=== PATIENT | female | born 1990 | race Asian ===

== ENCOUNTER 2018-10-12 11:14 | Inpatient (IN) | payer BC ==
[2018-10-12] VITALS (14 sets, daily range): BP systolic 113–145; BP diastolic 81–111
[~2018-10-12] VITALS: Ht 167.6 cm; Wt 92.1 kg
[2018-10-12] MEDS ORDERED: ONDANSETRON HCL INJ 2MG/ML 2ML 2 MG/ML VIAL IV STA (11:18)
[2018-10-12] MEDS ORDERED: SODIUM CHLORIDE 0.9% 1000ML 1,000 ML IV STA ×2 (11:18)
[2018-10-12] MEDS ORDERED: SODIUM CHLORIDE 0.9% 1000ML 2,000 ML ONE (11:54)
[2018-10-12 12:03] LABS: BASOPHILS # (AUTO) 0.1 (0.0-0.1); BASOPHILS % 0.5 % (0.0-1.0); HEMATOCRIT 46.5 % (34.2-44.1); HEMOGLOBIN 15.3 g/dL (12.0-16.0); LYMPHOCYTES # (AUTO) 1.2 (1.0-3.2); LYMPHOCYTES % 8.4 % (18.0-39.1); MEAN CORPUSCULAR HEMOGLOBIN 30.2 pg (28-32); MEAN CORPUSCULAR HGB CONC 32.9 g/dL (31-35); MEAN CORPUSCULAR VOLUME 91.7 fL (81-99); MONOCYTES # (AUTO) 1.1 (0.2-0.8); MONOCYTES % 7.3 % (4.4-11.3); PLATELET COUNT 352 x10e3/uL (140-360); RED BLOOD COUNT 5.07 x10e6/uL (3.6-5.1); RED CELL DISTRIBUTION WIDTH 13.7 % (11.7-14.4)
[2018-10-12 12:14] LABS: ALBUMIN 5.2 g/dL (3.5-5.0); ALBUMIN/GLOBULIN RATIO 0.9 (0.8-2.0); ANION GAP 33.4 mmol/L (8-16); CALCIUM 10.7 mg/dL (8.4-10.2); CREATININE, SERUM 2.4 mg/dL (0.57-1.11); POTASSIUM 5.4 mmol/L (3.5-5.1)
[2018-10-12 12:26] LABS: ABG HCO3 4 mmol/L (23-28); ABG PCO2 15 mmHg (41-51); ABG PH 7.08 (7.31-7.41); ABG PO2 121 mmHg (80-105)
[2018-10-12 12:28] LABS: BILIRUBIN,URINE NEGATIVE (NEGATIVE); CLARITY,URINE CLOUDY (CLEAR); COLOR,URINE OTHER (YELLOW); LEUKOCYTE ESTERASE ,URINE TRACE (NEGATIVE); NITRITE,URINE NEGATIVE (NEGATIVE); PROTEIN,URINE DIPSTICK 1+ (NEGATIVE); URINE UROBILINOGEN 0.2 mg/dL (0.2 - 1)
[2018-10-12 12:45] LABS: KETONES,URINE 2+ (NEGATIVE)
[2018-10-12 12:46] LABS: BACTERIA,URINE RARE /HPF; EPITHELIAL CELLS,URINE FEW /LPF; YEAST,URINE FEW
--- NOTE | 2018-10-12 12:50 | NUR ---
Pharmacy notified of ordered insulin drip.
[2018-10-12] MEDS: INSULIN REGULAR, HUMAN 3ML VL 100 UNIT in SODIUM CHLORIDE 0.9% 100 ML 99 ML IV SCH ×4 (13:07→15:30)
--- NOTE | 2018-10-12 13:07 | NUR ---
INSULIN DRIP STARTED AT 12 UNITS/HR AND DOUBLE CHECKED BY GOPAL KEMP.
[2018-10-12] MEDS ORDERED: DEXTROSE 5%/0.45% SOD CHL 1,000 ML IV ONE (13:15)
[2018-10-12] MEDS ORDERED: SODIUM CHLORIDE 0.9% 1000ML 1,000 ML IV SCH ×3 (13:15→16:30)
--- NOTE | 2018-10-12 13:19 | NUR ---
PT/FAMILY UPDATED ON PENDING ADMIT TO ICU FOR DKA.
[2018-10-12 13:39] LABS: PLATELET ESTIMATE ADEQUATE; PLATELET MORPHOLOGY COMMENT NORMAL; RBC MORPHOLOGY COMMENT NORMAL
--- NOTE | 2018-10-12 13:57 | NUR ---
ATTEMPTED TO CALL REPORT
[2018-10-12] MEDS ORDERED: MAGNESIUM SULF 1GRAM/DEXTROSE 100 ML IV PRN ×2 (16:15→20:15)
[2018-10-12] MEDS ORDERED: POTASSIUM CHLORIDE 20MEQ/100ML 100 ML IV PRN (16:15)
[2018-10-12] MEDS ORDERED: INSULIN REGULAR, HUMAN 100 UNIT/1 ML 3ML VIAL SQ PRN (16:15)
[2018-10-12] MEDS ORDERED: INSULIN GLARGINE 100 UNITS/ML VIAL SQ PRN (16:15)
[2018-10-12] MEDS ORDERED: SODIUM CHLORIDE 0.9% 1000ML 1,000 ML IV PRN (16:30)
--- NOTE | 2018-10-12 17:24 | NUR ---
patient admitted to icu from er with dka diagnosis. pt awake, lethargic, slow to respond to commands. continue with insulin and ns gtt's. spoke with Satish LABOR SERVICE REPRESENTATIVE with Dr. Beyer. notified of patient admission. no new orders at this time. Satish SILVESTRE aware of elevated blood glucose.
[2018-10-12 17:46] LABS: ANION GAP 23.3 mmol/L (8-16); CALCIUM 8.6 mg/dL (8.4-10.2); CREATININE, SERUM 1.32 mg/dL (0.57-1.11); MAGNESIUM 2.1 MG/DL (1.3-2.1); POTASSIUM 4.3 mmol/L (3.5-5.1)
[2018-10-12] MEDS ORDERED: TRAMADOL HCL 50 MG TAB PO PRN (20:00)
[2018-10-12] MEDS ORDERED: HYDROCODONE/APAP 10MG-325MG TAB PO PRN (20:00)
[2018-10-12] MEDS ORDERED: MORPHINE SULFATE INJ 4 MG/ML INJ 1ML IV PRN ×2 (20:00→20:15)
[2018-10-12] MEDS: SODIUM CHLORIDE 0.9% 1000ML 1,000 ML IV SCH (20:05)
[2018-10-12] MEDS ORDERED: INSULIN REGULAR, HUMAN 3ML VL 100 UNIT in SODIUM CHLORIDE 0.9% 100 ML IV SCH ×2 (20:15)
[2018-10-12] MEDS ORDERED: POTASSIUM CHLORIDE 20MEQ/100ML 200 ML IV PRN (20:15)
[2018-10-12 20:55] LABS: ANION GAP 19.3 mmol/L (8-16); CREATININE, SERUM 1.12 mg/dL (0.57-1.11); MAGNESIUM 1.7 MG/DL (1.3-2.1); POTASSIUM 3.3 mmol/L (3.5-5.1)
[2018-10-12] MEDS: POTASSIUM CHLORIDE 20MEQ/100ML 100 ML INJ PRN (21:11)
[2018-10-12] MEDS: DEXTROSE 5%/0.45% SOD CHL 1,000 ML IV SCH (22:40)
[2018-10-13] VITALS (23 sets, daily range): BP systolic 101–143; BP diastolic 68–123
[2018-10-13] MEDS: SODIUM CHLORIDE 0.9% 1000ML 1,000 ML IV SCH ×6 (00:05→19:29)
[2018-10-13 01:24] LABS: ANION GAP 15.2 mmol/L (8-16); CALCIUM 8.2 mg/dL (8.4-10.2); CREATININE, SERUM 1.13 mg/dL (0.57-1.11); MAGNESIUM 2.3 MG/DL (1.3-2.1)
[2018-10-13 01:30] LABS: POTASSIUM 4.2 mmol/L (3.5-5.1)
[2018-10-13 04:52] LABS: BASOPHILS % 0.3 % (0.0-1.0); EOSINOPHILS # (AUTO) 0.1 (0.0-0.4); EOSINOPHILS % 0.6 % (0.0-6.0); HEMATOCRIT 38.8 % (34.2-44.1); HEMOGLOBIN 13.4 g/dL (12.0-16.0); LYMPHOCYTES # (AUTO) 1.9 (1.0-3.2); LYMPHOCYTES % 16.1 % (18.0-39.1); MEAN CORPUSCULAR HEMOGLOBIN 29.8 pg (28-32); MEAN CORPUSCULAR HGB CONC 34.5 g/dL (31-35); MONOCYTES # (AUTO) 0.9 (0.2-0.8); MONOCYTES % 7.9 % (4.4-11.3); NEUTROPHILS # (AUTO) 8.6 (2.1-6.9); NEUTROPHILS % 74.8 % (38.7-80.0); PLATELET COUNT 310 x10e3/uL (140-360); RED CELL DISTRIBUTION WIDTH 13.3 % (11.7-14.4)
[2018-10-13 05:00] LABS: MEAN CORPUSCULAR VOLUME 86.2 fL (81-99)
[2018-10-13 05:13] LABS: ANION GAP 15.6 mmol/L (8-16); CALCIUM 8.6 mg/dL (8.4-10.2); CREATININE, SERUM 1.2 mg/dL (0.57-1.11); MAGNESIUM 2.2 MG/DL (1.3-2.1); PHOSPHORUS 0.9 MG/DL (2.3-4.7); POTASSIUM 3.6 mmol/L (3.5-5.1)
[2018-10-13 05:14] LABS: CHOL/HDL RATIO 6.2 (3.0-3.6)
[2018-10-13 05:16] LABS: ALBUMIN 3.8 g/dL (3.5-5.0)
[2018-10-13] MEDS: DEXTROSE 5%/0.45% SOD CHL 1,000 ML IV SCH ×2 (06:45→17:00)
--- NOTE | 2018-10-13 07:15 | NUR ---
Patient received asleep and easily awakened when called by name. Respirations are even and unlabored. Alert and Ox4. Denies any pain at this time. Says that she just feels very tired. Call light at bedside and instructed to call for assistance to bathroom. Brother asleep in recliner at bedside.
[2018-10-13 07:25] LABS: THYROID STIMULATING HORMONE 0.658 uIU/mL (0.350-4.940)
[2018-10-13 08:23] LABS: ANION GAP 14.2 mmol/L (8-16); CALCIUM 9.1 mg/dL (8.4-10.2); CREATININE, SERUM 1.18 mg/dL (0.57-1.11); MAGNESIUM 2.2 MG/DL (1.3-2.1); POTASSIUM 3.2 mmol/L (3.5-5.1)
[2018-10-13] MEDS: POTASSIUM CHLORIDE 20MEQ/100ML 100 ML INJ PRN (08:55)
[2018-10-13] MEDS ORDERED: POTASSIUM CHLORIDE 10MEQ/100ML 200 ML IV ONE (09:15)
[2018-10-13] MEDS ORDERED: MAGNESIUM SULF 1GRAM/DEXTROSE 100 ML IV PRN (10:30)
[2018-10-13] MEDS ORDERED: SODIUM CHLORIDE 0.9% 250ML 250 ML ONE (10:38)
[2018-10-13 13:38] LABS: BLOOD UREA NITROGEN 5 mg/dL (7-26); BUN/CREATININE RATIO 5 (6-25); CALCIUM 8.8 mg/dL (8.4-10.2); CARBON DIOXIDE 13 mmol/L (22-29); CHLORIDE 106 mmol/L (98-107); CREATININE, SERUM 1.01 mg/dL (0.57-1.11); EST GLOMERULAR FILTRATION RATE > 60 ML/MIN (60-); GLUCOSE 124 mg/dL (74-118); MAGNESIUM 2.2 MG/DL (1.3-2.1); SODIUM 133 mmol/L (136-145)
--- NOTE | 2018-10-13 14:02 | NUR ---
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 BROTHER WORKS IN OUTPATIENT BUILDING.
[2018-10-13 17:50] LABS: ANION GAP 16.1 mmol/L (8-16); BLOOD UREA NITROGEN < 5 mg/dL (7-26); CALCIUM 8.7 mg/dL (8.4-10.2); CARBON DIOXIDE 14 mmol/L (22-29); CHLORIDE 107 mmol/L (98-107); CREATININE, SERUM 0.93 mg/dL (0.57-1.11); EST GLOMERULAR FILTRATION RATE > 60 ML/MIN (60-); GLUCOSE 125 mg/dL (74-118); MAGNESIUM 2.2 MG/DL (1.3-2.1); POTASSIUM 3.1 mmol/L (3.5-5.1); SODIUM 134 mmol/L (136-145)
[2018-10-13 18:04] LABS: BUN/CREATININE RATIO 5 (6-25)
[2018-10-13] MEDS ORDERED: POTASSIUM CHLORIDE 20 MEQ TAB CR PO ONE (19:30)
[2018-10-13 22:31] LABS: ANION GAP 16.6 mmol/L (8-16); BLOOD UREA NITROGEN < 5 mg/dL (7-26); CALCIUM 8.5 mg/dL (8.4-10.2); CARBON DIOXIDE 13 mmol/L (22-29); CHLORIDE 106 mmol/L (98-107); CREATININE, SERUM 0.87 mg/dL (0.57-1.11); EST GLOMERULAR FILTRATION RATE > 60 ML/MIN (60-); GLUCOSE 154 mg/dL (74-118); MAGNESIUM 2.7 MG/DL (1.3-2.1); POTASSIUM 3.6 mmol/L (3.5-5.1); SODIUM 132 mmol/L (136-145)
[2018-10-13 22:43] LABS: BUN/CREATININE RATIO 6 (6-25)
[2018-10-14] VITALS (19 sets, daily range): BP systolic 113–156; BP diastolic 59–99
[2018-10-14] MEDS: SODIUM CHLORIDE 0.9% 1000ML 1,000 ML IV SCH ×3 (00:05→08:00)
[2018-10-14 02:00] LABS: ANION GAP 13.8 mmol/L (8-16); BLOOD UREA NITROGEN < 5 mg/dL (7-26); CALCIUM 8.4 mg/dL (8.4-10.2); CARBON DIOXIDE 16 mmol/L (22-29); CHLORIDE 108 mmol/L (98-107); EST GLOMERULAR FILTRATION RATE > 60 ML/MIN (60-); GLUCOSE 136 mg/dL (74-118); MAGNESIUM 2.1 MG/DL (1.3-2.1); SODIUM 135 mmol/L (136-145)
[2018-10-14 02:04] LABS: BUN/CREATININE RATIO 6 (6-25)
[2018-10-14 02:06] LABS: POTASSIUM 2.8 mmol/L (3.5-5.1)
[2018-10-14] MEDS: POTASSIUM CHLORIDE 20MEQ/100ML 200 ML IV PRN (02:22)
--- NOTE | 2018-10-14 03:26 | Diagnostic Imaging Report ---
EXAMINATION: CHEST SINGLE (PORTABLE) INDICATION: ^PICC LINE PLACEMENT ^[id number] ^0300 COMPARISON: None FINDINGS: AP view TUBES and LINES: Right PICC visualized with tip overlying mid to inferior SVC. LUNGS: Low lung volumes. Also Limited by body habitus. Central vascular congestion. PLEURA: No significant pleural effusion or pneumothorax. HEART AND MEDIASTINUM: The cardiomediastinal silhouette is unremarkable. BONES AND SOFT TISSUES: No acute osseous lesion. Soft tissues are unremarkable. UPPER ABDOMEN: No free air under the diaphragm. IMPRESSION: Right PICC in place with tip projecting over mid to inferior SVC. No visible pneumothorax. Signed by: Dr. Grzegorz Ann MD on 10/14/2018 3:23 AM
[2018-10-14] MEDS: DEXTROSE 5%/0.45% SOD CHL 1,000 ML IV SCH (06:07)
[2018-10-14 06:35] LABS: BLOOD UREA NITROGEN < 5 mg/dL (7-26); CALCIUM 8.3 mg/dL (8.4-10.2); CARBON DIOXIDE 18 mmol/L (22-29); CHLORIDE 109 mmol/L (98-107); CREATININE, SERUM 0.79 mg/dL (0.57-1.11); EST GLOMERULAR FILTRATION RATE > 60 ML/MIN (60-); GLUCOSE 130 mg/dL (74-118); MAGNESIUM 2.1 MG/DL (1.3-2.1); SODIUM 136 mmol/L (136-145)
[2018-10-14 06:39] LABS: BUN/CREATININE RATIO 6 (6-25)
[2018-10-14] MEDS ORDERED: POTASSIUM CHLORIDE 20MEQ/100ML 100 ML ONE (08:03)
[2018-10-14] MEDS: POTASSIUM CHLORIDE 20MEQ/100ML 100 ML INJ PRN ×4 (09:47→15:45)
--- NOTE | 2018-10-14 10:29 | NUR ---
Consult called to Dr Nguyen.
[2018-10-14 10:41] LABS: ANION GAP 11.8 mmol/L (8-16); BLOOD UREA NITROGEN < 5 mg/dL (7-26); CALCIUM 8.3 mg/dL (8.4-10.2); CARBON DIOXIDE 19 mmol/L (22-29); CHLORIDE 109 mmol/L (98-107); CREATININE, SERUM 0.76 mg/dL (0.57-1.11); EST GLOMERULAR FILTRATION RATE > 60 ML/MIN (60-); GLUCOSE 151 mg/dL (74-118); MAGNESIUM 1.9 MG/DL (1.3-2.1); SODIUM 137 mmol/L (136-145)
[2018-10-14 10:45] LABS: BUN/CREATININE RATIO 7 (6-25); POTASSIUM 2.8 mmol/L (3.5-5.1)
[2018-10-14] MEDS: SODIUM CHLORIDE 0.45% 1,000 ML IV SCH ×2 (11:24→23:00)
[2018-10-14] MEDS ORDERED: INSULIN REGULAR, HUMAN 100 UNITS in SODIUM CHLORIDE 0.45% 100 ML SQ PRN ×2 (11:45)
[2018-10-14] MEDS ORDERED: INSULIN LISPRO 100 UNIT/1 ML 3ML VIAL SQ ONE (13:45)
--- NOTE | 2018-10-14 14:25 | NUR ---
Nutrition Education Note RD Recommendation for Physician: -Continue ADA 1800 diet as ordered -RD provided education on diabetic diet; pt will need further education and monitoring once discharged. Plan of Care: RD following, monitoring for tolerance and adequacy, diet education Nutrition reason for involvement: Newly diagnosed DM Primary Diagnose(s): DKA PMH: no H&P indicated Ht: 66in Wt: 204.06lb BMI: 32.9kg/m2 IBW: 130lb RD Assessment: (10/14/2018) Chart reviewed. Labs and meds reviewed. 28yo F, who was admitted for DKA. BG 137 161 on insulin. HbA1c at 12.6%. Visited pt in the room. Pt eating well without any GI complains. RD provided education on carbohydrate counting and portion sizes. All questions have been answered. Will continue to monitor and follow. Current Diet: ADA 1800 Malnutrition Evaluation (10/14/2018) The patient does not meet criteria for a specified degree of malnutrition at this time. Will re-evaluate at follow-up as appropriate. Diet Education Needs Assessment: Diet education indicated, pt was agreeable with plan. Learner(s): pt and sister Time spent: 25 minutes Barriers: No barriers identified. Cultural/Language Modifications: No cultural/language modifications noted. Pt and sister speak Maltese. Readiness: Acceptance Method: Handouts, explanation Topics: Carbohydrate exchanges, Carbohydrate counting handouts, Reading the nutrition label, meal planning tips, exercise tips, servings/portion sizes, S/S of hypo & hyperglycemia Understanding/Compliance: Expect fair understanding/compliance from pt. Will benefit from reinforcement. All questions have been answered. Nutrition Care Level: low Signed: Jen Sood, , RD, LD
[2018-10-14 15:19] LABS: ANION GAP 15.2 mmol/L (8-16); BLOOD UREA NITROGEN < 5 mg/dL (7-26); CALCIUM 8.4 mg/dL (8.4-10.2); CARBON DIOXIDE 17 mmol/L (22-29); CHLORIDE 106 mmol/L (98-107); CREATININE, SERUM 0.77 mg/dL (0.57-1.11); EST GLOMERULAR FILTRATION RATE > 60 ML/MIN (60-); GLUCOSE 278 mg/dL (74-118); POTASSIUM 3.2 mmol/L (3.5-5.1); SODIUM 135 mmol/L (136-145)
[2018-10-14 15:24] LABS: BUN/CREATININE RATIO 6 (6-25)
[2018-10-14 15:28] LABS: FREE T4 (FREE THYROXINE) 1.16 ng/dL (0.9-1.8); THYROID STIMULATING HORMONE 1.65 uIU/mL (0.350-4.940)
[2018-10-14] MEDS: INSULIN LISPRO 100 UNIT/1 ML 3ML VIAL SQ SCH ×3 (16:49→21:21)
[2018-10-14] MEDS: INSULIN GLARGINE 100 UNITS/ML VIAL SQ SCH (21:22)
--- NOTE | 2018-10-14 21:33 | Consultation ---
DATE OF CONSULTATION: 10/14/2018 Endocrine Consultation Thank you very much for referring this patient. HISTORY OF PRESENT ILLNESS: This is a 28-year-old female, who was referred to me for evaluation of new onset diabetes mellitus and diabetic ketoacidosis. The patient has a strong family history of diabetes mellitus. Before she came to the hospital, she was having polyuria, polydipsia, dryness of mouth and she came to the hospital with history of nausea and vomiting. Her blood sugar at the time of admission was 1223 and anion gap was elevated at 33.4. Her sodium was 114. Since the patient has been in the hospital, she has been on insulin drip and IV fluids and symptomatically, she is doing much better. PHYSICAL EXAMINATION: GENERAL: Today, the patient is alert, awake, and little bit apprehensive. She is moderately overweight. VITAL SIGNS: Her heart rate is around 100, blood pressure is 120/80 mmHg. HEENT: Essentially unremarkable. Thyroid is palpable. Clinically, she is near euthyroid. CHEST: Bilateral vesicular breathing. No rales. CARDIAC: First and second heart sounds. There is no third or fourth heart sound with the systolic grade 2/6. EXTREMITIES: The patient has evidence of diabetic sensory neuropathy in both lower extremities. CLINICAL IMPRESSION: Diabetes mellitus, probably type 1 diabetic ketoacidosis and dehydration. PLAN: At this time is to taper off the insulin drip and start from the subcu insulin. Monitor her blood sugars closely. The patient needs extensive diabetic and dietary education. Thanks for referring this patient. I will be following this patient with you. MD DUTCH Reis/MARIPOSAL /[id number]
--- NOTE | 2018-10-14 21:33 | NUR ---
RECEIVED PATIENT FROM ICU AT THIS TIME. PATIENT IS A&OX4. NO PAIN REPORTED. LUNG SOUNDS CLEAR. BOWEL SOUNDS ACTIVE. SKIN INTACT. R UPPER ARM PICC LINE ASYMPTOMATIC, INTACT, AND PATENT. R AC 20 G ASYMPTOMATIC, INTACT, AND PATENT. 1/2 NS @ 75ML/HR. NO S&S OF DISTRESS NOTED. BED LOCKED IN LOWEST POSITION, SIDE RAILS UPX2, CALL LIGHT IN REACH.
[2018-10-14] MEDS ORDERED: FLUCONAZOLE 100 MG TAB PO ONE (21:45)
[2018-10-15] VITALS (8 sets, daily range): BP systolic 113–124; BP diastolic 62–88
[2018-10-15 03:09] LABS: BASOPHILS % 0.2 % (0.0-1.0); EOSINOPHILS # (AUTO) 0.1 (0.0-0.4); EOSINOPHILS % 1.4 % (0.0-6.0); HEMATOCRIT 30.6 % (34.2-44.1); HEMOGLOBIN 11.1 g/dL (12.0-16.0); LYMPHOCYTES # (AUTO) 2.1 (1.0-3.2); LYMPHOCYTES % 35.5 % (18.0-39.1); MEAN CORPUSCULAR HEMOGLOBIN 30.2 pg (28-32); MEAN CORPUSCULAR HGB CONC 36.3 g/dL (31-35); MEAN CORPUSCULAR VOLUME 83.4 fL (81-99); MONOCYTES # (AUTO) 0.6 (0.2-0.8); MONOCYTES % 9.3 % (4.4-11.3); NEUTROPHILS # (AUTO) 3.2 (2.1-6.9); NEUTROPHILS % 53.4 % (38.7-80.0); PLATELET COUNT 200 x10e3/uL (140-360); RED BLOOD COUNT 3.67 x10e6/uL (3.6-5.1); RED CELL DISTRIBUTION WIDTH 13.8 % (11.7-14.4)
[2018-10-15 03:25] LABS: ANION GAP 14.9 mmol/L (8-16); BLOOD UREA NITROGEN < 5 mg/dL (7-26); CALCIUM 8.1 mg/dL (8.4-10.2); CARBON DIOXIDE 20 mmol/L (22-29); CHLORIDE 105 mmol/L (98-107); CREATININE, SERUM 0.69 mg/dL (0.57-1.11); EST GLOMERULAR FILTRATION RATE > 60 ML/MIN (60-); GLUCOSE 291 mg/dL (74-118); SODIUM 137 mmol/L (136-145)
[2018-10-15 03:36] LABS: MAGNESIUM 1.8 MG/DL (1.3-2.1); PHOSPHORUS 1.3 MG/DL (2.3-4.7)
[2018-10-15 03:39] LABS: BUN/CREATININE RATIO 7 (6-25)
[2018-10-15 03:40] LABS: POTASSIUM 2.9 mmol/L (3.5-5.1)
[2018-10-15] MEDS: POTASSIUM CHLORIDE 20MEQ/100ML 200 ML IV PRN (04:26)
--- NOTE | 2018-10-15 04:26 | NUR ---
PATIENT'S POTASSIUM LEVEL IS 2.9. STARTED INFUSING POTASSIUM CHLORIDE ORDERED ON EMAR. BMP TO BE COLLECTED 1 HOUR POST INFUSION COMPLETION TIME, PROJECTED TO BE 0730.
--- NOTE | 2018-10-15 07:01 | NUR ---
PT AWAKE AND AMBULATING TO RESTROOM AT THIS TIME NO DISTRESS NOTED, PT HAS FAMILY MEMBERS AT BEDSIDE.
[2018-10-15] MEDS: INSULIN LISPRO 100 UNIT/1 ML 3ML VIAL SQ SCH ×7 (07:30→21:43)
--- NOTE | 2018-10-15 07:30 | NUR ---
BLOOD DRAWN ON PT.VIA PICC LINE, PT TOLERATED WELL.
--- NOTE | 2018-10-15 07:49 | NUR ---
ZUNILDA VISITED PT AT THIS TIME.
[2018-10-15 08:11] LABS: ANION GAP 15.1 mmol/L (8-16); BLOOD UREA NITROGEN < 5 mg/dL (7-26); BUN/CREATININE RATIO 7 (6-25); CALCIUM 7.8 mg/dL (8.4-10.2); CARBON DIOXIDE 19 mmol/L (22-29); CHLORIDE 103 mmol/L (98-107); CREATININE, SERUM 0.68 mg/dL (0.57-1.11); EST GLOMERULAR FILTRATION RATE > 60 ML/MIN (60-); GLUCOSE 294 mg/dL (74-118); POTASSIUM 3.1 mmol/L (3.5-5.1); SODIUM 134 mmol/L (136-145)
[2018-10-15] MEDS: SODIUM CHLORIDE 0.45% 1,000 ML IV SCH (14:42)
[2018-10-15] MEDS: POTASSIUM CHLORIDE 20MEQ/100ML 100 ML INJ PRN (18:59)
--- NOTE | 2018-10-15 19:00 | NUR ---
RECEIVED PATIENT IN BEDSIDE REPORT. NO PAIN REPORTED. NO S&S OF DISTRESS NOTED. BED LOCKED IN LOWEST POSITION, SIDE RAILS UPX2, CALL LIGHT IN REACH.
--- NOTE | 2018-10-15 19:10 | NUR ---
RECEIVED IN REPORT THAT PATIENT'S POTASSIUM IS 3.1, FIRST BAG OF POTASSIUM CHLORIDE, 20MEQ IN 100 ML SPIKED AND HUNG BY DAY SHIFT. SECOND BAG OF POTASSIUM CHLORIDE, 20MEQ IN 100ML TO BE GIVEN ON THIS SHIFT.
--- NOTE | 2018-10-15 19:37 | NUR ---
report given to oncoming nurse for continued care.
--- NOTE | 2018-10-15 21:30 | NUR ---
SECOND BAG OF POTASSIUM CHLORIDE 20 MEQ IN 100ML GIVEN AT THIS TIME. FIRST BAG INFUSED SLOWLY AND JUST FINISHED.
[2018-10-15] MEDS: INSULIN GLARGINE 100 UNITS/ML VIAL SQ SCH (21:43)
--- NOTE | 2018-10-15 21:45 | NUR ---
EDUCATED PATIENT ON INSULIN ADMINISTRATION. PATIENT CORRECTLY DEMONSTRATED DRAWING INSULIN INTO NEEDLE AND ADMINISTERING INJECTION TO SELF. NO QUESTIONS REPORTED. EDUCATED PATIENT ON LONG ACTING VS SHORT ACTING INSULIN.
[2018-10-16] VITALS (8 sets, daily range): BP systolic 114–126; BP diastolic 68–78
[2018-10-16 03:21] LABS: BASOPHILS % 0.3 % (0.0-1.0); EOSINOPHILS # (AUTO) 0.2 (0.0-0.4); EOSINOPHILS % 2.3 % (0.0-6.0); HEMATOCRIT 31.1 % (34.2-44.1); HEMOGLOBIN 11.2 g/dL (12.0-16.0); LYMPHOCYTES # (AUTO) 2.6 (1.0-3.2); MEAN CORPUSCULAR HEMOGLOBIN 30.1 pg (28-32); MEAN CORPUSCULAR VOLUME 83.6 fL (81-99); MONOCYTES # (AUTO) 0.6 (0.2-0.8); MONOCYTES % 8.4 % (4.4-11.3); NEUTROPHILS # (AUTO) 3.2 (2.1-6.9); NEUTROPHILS % 48.7 % (38.7-80.0); PLATELET COUNT 254 x10e3/uL (140-360); RED BLOOD COUNT 3.72 x10e6/uL (3.6-5.1); RED CELL DISTRIBUTION WIDTH 14.2 % (11.7-14.4)
[2018-10-16 03:41] LABS: BLOOD UREA NITROGEN 5 mg/dL (7-26); BUN/CREATININE RATIO 7 (6-25); CALCIUM 8.3 mg/dL (8.4-10.2); CARBON DIOXIDE 20 mmol/L (22-29); CHLORIDE 104 mmol/L (98-107); CREATININE, SERUM 0.67 mg/dL (0.57-1.11); EST GLOMERULAR FILTRATION RATE > 60 ML/MIN (60-); GLUCOSE 268 mg/dL (74-118); MAGNESIUM 1.9 MG/DL (1.3-2.1); SODIUM 137 mmol/L (136-145)
--- NOTE | 2018-10-16 05:25 | NUR ---
CALL PLACED TO NIRMALA EUGENE CONCERNING LOW POTASSIUM LEVEL. LEFT MESSAGE. WAITING FOR CALL BACK.
--- NOTE | 2018-10-16 05:29 | NUR ---
CALL PLACED TO MD GOULD, RECEIVED ORDER TO GIVE 40 MEQ IV IN 200ML ON PRN ORDERS.
[2018-10-16] MEDS: POTASSIUM CHLORIDE 20MEQ/100ML 200 ML IV PRN ×2 (05:38→22:00)
[2018-10-16] MEDS ORDERED: ONDANSETRON HCL INJ 2MG/ML 2ML 2 MG/ML VIAL IV PRN (07:15)
[2018-10-16] MEDS ORDERED: HYDRALAZINE HCL 20 MG/ML VIAL IV PRN (07:15)
[2018-10-16] MEDS ORDERED: ACETAMINOPHEN 325 MG TAB PO PRN (07:15)
[2018-10-16] MEDS: INSULIN LISPRO 100 UNIT/1 ML 3ML VIAL SQ SCH ×7 (07:30→22:10)
--- NOTE | 2018-10-16 07:30 | NUR ---
Viola, here to see pt.
[2018-10-16] MEDS: OYST-CAL-D 500MG TABLET PO SCH ×2 (08:07→18:06)
[2018-10-16] MEDS: SODIUM CHLORIDE 0.45% 1,000 ML IV SCH (10:30)
--- NOTE | 2018-10-16 12:30 | NUR ---
pt administered her insulin.
--- NOTE | 2018-10-16 18:54 | NUR ---
report given to oncoming nurse, pt stable.
--- NOTE | 2018-10-16 19:00 | NUR ---
RECEIVED PATIENT IN BEDSIDE REPORT. PATIENT REPORTS NO PAIN AT THIS TIME. NO S&S OF DISTRESS NOTED. BED LOCKED IN LOWEST POSITION, SIDE RAILS UPX2, CALL LIGHT IN REACH.
[2018-10-16 19:05] LABS: BLOOD UREA NITROGEN 5 mg/dL (7-26); BUN/CREATININE RATIO 8 (6-25); CALCIUM 8.1 mg/dL (8.4-10.2); CARBON DIOXIDE 22 mmol/L (22-29); CHLORIDE 106 mmol/L (98-107); EST GLOMERULAR FILTRATION RATE > 60 ML/MIN (60-); GLUCOSE 262 mg/dL (74-118); SODIUM 138 mmol/L (136-145)
--- NOTE | 2018-10-16 19:13 | NUR ---
report given to oncoming nurse, pt stable.
[2018-10-16] MEDS: INSULIN GLARGINE 100 UNITS/ML VIAL SQ SCH (22:10)
--- NOTE | 2018-10-16 22:10 | NUR ---
PROVIDED PATIENT WITH SLIDING SCALE INFORMATION AND HER BS RESULTS. PATIENT DETERMINED AMOUNT OF INSULIN SHE NEEDED AND ADMINISTERED. PATIENT FOLLOWED PROPER PROCEDURE WITH NO PROMPTING.
[2018-10-17] VITALS: BP 116/75
[2018-10-17] MEDS: SODIUM CHLORIDE 0.45% 1,000 ML IV SCH ×3 (03:35→18:19)
[2018-10-17 03:50] LABS: BASOPHILS % 0.5 % (0.0-1.0); EOSINOPHILS # (AUTO) 0.3 (0.0-0.4); EOSINOPHILS % 4.5 % (0.0-6.0); HEMOGLOBIN 11.3 g/dL (12.0-16.0); LYMPHOCYTES # (AUTO) 3.1 (1.0-3.2); LYMPHOCYTES % 48.3 % (18.0-39.1); MEAN CORPUSCULAR HEMOGLOBIN 30.2 pg (28-32); MEAN CORPUSCULAR HGB CONC 35.3 g/dL (31-35); MEAN CORPUSCULAR VOLUME 85.6 fL (81-99); MONOCYTES # (AUTO) 0.6 (0.2-0.8); NEUTROPHILS # (AUTO) 2.4 (2.1-6.9); NEUTROPHILS % 37.4 % (38.7-80.0); PLATELET COUNT 311 x10e3/uL (140-360); RED BLOOD COUNT 3.74 x10e6/uL (3.6-5.1); RED CELL DISTRIBUTION WIDTH 14.4 % (11.7-14.4)
[2018-10-17 03:59] LABS: ANION GAP 12.4 mmol/L (8-16); BLOOD UREA NITROGEN < 5 mg/dL (7-26); BUN/CREATININE RATIO 8 (6-25); CALCIUM 8.6 mg/dL (8.4-10.2); CARBON DIOXIDE 24 mmol/L (22-29); CHLORIDE 105 mmol/L (98-107); CREATININE, SERUM 0.62 mg/dL (0.57-1.11); EST GLOMERULAR FILTRATION RATE > 60 ML/MIN (60-); GLUCOSE 227 mg/dL (74-118); MAGNESIUM 1.8 MG/DL (1.3-2.1); POTASSIUM 3.4 mmol/L (3.5-5.1); SODIUM 138 mmol/L (136-145)
--- NOTE | 2018-10-17 07:30 | NUR ---
RECEIVED PATIENT RESTING IN BED AT THIS TIME. NO SIGNS OF DISTRESS. BED LOW, WHEELS LOCKED, SIDE RAILS X2. CALL LIGHT IN REACH WILL CONTINUE TO MONITOR PATIENT.
[2018-10-17] MEDS ORDERED: POTASSIUM CHLORIDE 20 MEQ TAB CR PO SCH (08:00)
[2018-10-17 08:02] VITALS: BP 124/79
[2018-10-17] MEDS: INSULIN LISPRO 100 UNIT/1 ML 3ML VIAL SQ SCH ×6 (08:10→16:43)
[2018-10-17] MEDS: OYST-CAL-D 500MG TABLET PO SCH ×2 (08:10→16:28)
[2018-10-17] MEDS ORDERED: FLUCONAZOLE 200 MG/100 ML 100 ML IV SCH (08:30)
--- NOTE | 2018-10-17 09:00 | NUR ---
PATIENT A/O X3, EVEN RESPIRATIONS ON RA. BOWEL SOUNDS ACTIVE, SKIN INTACT, NO EDEMA. NAVIN PICC IN PLACE AND RIGHT AC 20 GAUGE IV WITH 1/2 NS @ 75 CC/HR. PATIENT AMBULATES TO TOILET. NO DISCOMFORT AT THIS TIME. EDUCATED PATIENT ON MORNING BLOOD SUGAR AND SLIDING SCALE. VERBALIZED UNDERSTANDING. ADMINISTERED INSULIN WITH NO PROMPTS GIVEN. CALL LIGHT IN REACH. WILL CONTINUE TO MONITOR PATIENT.
[2018-10-17 09:35] VITALS: BP 124/79
[2018-10-17] MEDS ORDERED: ONDANSETRON HCL 4 MG ORAL DISINTEGRATING TAB PO PRN (11:45)
[2018-10-17 12:11] VITALS: BP 113/70
[2018-10-17 14:59] LABS: ANION GAP 12.7 mmol/L (8-16); BLOOD UREA NITROGEN 5 mg/dL (7-26); BUN/CREATININE RATIO 7 (6-25); CALCIUM 9.2 mg/dL (8.4-10.2); CARBON DIOXIDE 25 mmol/L (22-29); CHLORIDE 101 mmol/L (98-107); CREATININE, SERUM 0.76 mg/dL (0.57-1.11); EST GLOMERULAR FILTRATION RATE > 60 ML/MIN (60-); GLUCOSE 281 mg/dL (74-118); POTASSIUM 3.7 mmol/L (3.5-5.1); SODIUM 135 mmol/L (136-145)
[2018-10-17 16:15] VITALS: BP 121/74
[2018-10-17] MEDS ORDERED: [UNRECOGNIZED DRUG - OTHER] SQ (18:57)
[2018-10-17] MEDS ORDERED: [UNRECOGNIZED DRUG - OTHER] (18:57)
[2018-10-17] MEDS ORDERED: humalog SQ (18:59)
[2018-10-17 19:55] VITALS: BP 104/71
--- NOTE | 2018-10-17 20:05 | NUR ---
PATIENT IS DISCHARGED TO HOME. DISCHARGED INSTRUCTIONS, PRESCRIPTION AND FOLLOW UP GIVEN TO THE PATIENT AND HER BROTHER, THEY VERBALIZED UNDERSTANDING. IV HEPLOCK AND PICC LINE REMOVED WITH TIP INTACT, ALL PERSONAL ITEMS TAKEN WITH THE PATIENT. LEFT UNIT PER WHEEL CHAIR TO THE FRONT LOBBY IN STABLE CONDITION.
== END 2018-10-17 20:05 | disposition home or self-care (01) | DRG 639 ==
LOC: ER 11:14 → ERHOLD 13:21 → ICU 15:27 → MED/SURG 10-14 21:33
PROVIDERS: ADMIT Internal Medicine; ATTEND Internal Medicine
PROC: 02HV33Z Insertion of Infusion Device into Superior Vena Cava, Percutaneous Approach (ICD-10-PCS; principal; 2018-10-14)
DX: E11.10 Type 2 diabetes mellitus with ketoacidosis without coma (principal); Z79.4 Long term (current) use of insulin; R11.2 Nausea with vomiting, unspecified; R55 Syncope and collapse; E87.6 Hypokalemia; E83.51 Hypocalcemia; E66.9 Obesity, unspecified; Z68.32 Body mass index [BMI] 32.0-32.9, adult
CPT/HCPCS: 36415; 36569; 36600; 71045; 80048; 80053; 80061; 81001; 81025; 82805; 82948; 83036; 83519; 83735; 83880; 84100; 84439; 84443; 85025; 86337; 87086; 93005; 96372; 99284; J1450; J1815; J2405; J3480; J7030; J7050